=== PATIENT | female | born 1990 | race American Indian/Alaskan Native ===

== ENCOUNTER 2017-11-20 18:40 | Emergency (ER) | payer SELFPAY ==
[2017-11-20 18:49] VITALS: BP 121/59
[2017-11-20 19:19] LABS: Bilirubin,Urine NEG (Negative); Blood,Urine LG (Negative); Color,Urine Straw (Yellow); Mucus,Urine FEW /HPF; Protein,Urine <15 mg/dL mg/dL (Negative); Urobilinogen,Urine < 2.0 mg/dL (<2.0)
[2017-11-20 19:24] LABS: HCG Qualitative,Urine Negative (Negative)
--- NOTE | 2017-11-20 19:44 | Emergency Department Report ---
Vomiting/Diarrhea - HPI Chief Complaint: Abdominal Pain Stated Complaint: RIGHT LOWER ABD PAIN Time Seen by Provider: 11/20/17 19:33 Duration: 2 months Severity: mild Nausea/Vomiting Severity: None Diarrhea Severity: None Pain Location: RLQ Pain Severity: Mild Symptoms: Yes Able to Tolerate Fluids, No Watery Diarrhea, No Bloody diarrhea, No Fever, No Recent Unusual Foods, No Recent Untreated Water, No Recent use of Antibiotics, No Family w/ Similar Symptoms, No Contacts w/ Similar Symptoms, No Rash, No Hematuria, No Recent URI Symptoms Other History: This is a 27-year-old -[place] female presents with right lower quadrant pain for 2 months. Patient reports pain is dull and intermittent. Pain is sharp at times and lasts for up to 5 minutes. Reports feeling like something is moving inside of her stomach on the right side. She has not tried taking anything this time. She is concerned it is something in serious and wanted to have follow-up prior to traveling out of the country. Pain currently has resolved. She had one episode of diarrhea yesterday morning. She did not notice blood or staining of bowel. Denies nausea or vomiting, fever, burning sensation, and diarrhea. ED Review of Systems ROS: Stated complaint: RIGHT LOWER ABD PAIN Other details as noted in HPI Constitutional: denies: chills, fever Respiratory: denies: cough, shortness of breath, wheezing Cardiovascular: denies: chest pain, palpitations Gastrointestinal: abdominal pain (right lower quadrant pain), diarrhea (1 episode yesterday). denies: nausea, vomiting, constipation Skin: denies: rash, lesions Neurological: denies: headache, weakness, paresthesias Psychiatric: denies: anxiety, depression ED Past Medical Hx - Past Medical History Previous Medical History?: No - Surgical History Past Surgical History?: No - Social History Smoking Status: Never Smoker Substance Use Type: None Vomiting Diarrhea Exam - Exam General: Vital signs noted. No distress. Alert and acting appropriately. HEENT: Yes Moist Mucous Membranes, No Pharyngeal Erythema, No Pharyngeal Exudates, No Rhinorrhea, No Conjuctival Injection, No Frontal Tenderness, No Maxillary Tenderness Neck: No Adenopathy, No Rigidity Lungs: Yes Clear Lung Sounds, Yes Good Air Exchange, No Wheezes, No Stridor, No Cough, No Nasal Flaring, No Retractions, No Use of Accessory Muscles Heart exam: Regular: Yes, Murmur: No, Tachycardia: No Abdomen: Tenderness: No, Peritoneal Signs: No, Distention: No, Hyperactive Bowel sounds: No Skin exam: Rash: No, Edema: No, Normal turgor: Yes Neurologic: Alert and oriented, no deficits. Musculoskeletal: Unremarkable. ED Course Vital Signs 11/20/17 18:45 Temperature 99.4 F Pulse Rate 107 H Respiratory 16 Rate Blood Pressure 121/59 O2 Sat by Pulse 100 Oximetry ED Medical Decision Making - Radiology Data Radiology results: report reviewed PROCEDURE: US ABDOMEN COMPLETE TECHNIQUE: Real-time sonography in multiple planes of the abdomen was performed with image documentation. CPT 32668 HISTORY: RLQ tenderness COMPARISON: No prior studies are available for comparison. FINDINGS: Liver: Normal size and echotexture with no evidence of cystic or solid mass lesions. Gallbladder: Fluid filled. No gallstones, wall thickening, pericholecystic fluid, or sonographic Goldstein's sign. Intrahepatic bile ducts: Normal caliber . Extrahepatic bile ducts: Normal caliber measuring 2 millimeters. Pancreas: Visualized pancreatic head and body demonstrates normal echotexture. Aorta: Proximal aorta measures 1.3 centimeters in diameter. Mid and distal aorta is not well visualized due to bowel gas.. IVC: Visualized portions appear normal. RIGHT kidney: Normal echotexture. No focal renal mass, calculus, or hydronephrosis. Length: 10 x 5 x 4cm. LEFT kidney: Normal echotexture. No focal renal mass, calculus, or hydronephrosis . Length: 9 x 4 x 4cm. Spleen: Normal size and echotexture. No focal lesions. Intraperitoneal fluid: None . Other: None . IMPRESSION: Unremarkable study. - Medical Decision Making This is a 27 y.o. -[place] female with right lower quadrant intermittent pain for 2 months. Patient examined by me. No distress noted. Vitals stable. Her pain currently resolved. She is drinking and eating in the ER with out distress. Obtained UA, tests, ultrasound of abdomen. Labs and ultrasound unremarkable. Advised to f/u with PCP if symptoms persist. Instructed to take OTC pepcid or zantac to r/o GERD. No medication started today. Follow-up with primary care provider in 2-3 days. Critical care attestation.: If time is entered above; I have spent that time in minutes in the direct care of this critically ill patient, excluding procedure time. ED Disposition Clinical Impression: Well adult Abdominal pain Qualifiers: Abdominal location: right lower quadrant Qualified Code(s): R10.31 - Right lower quadrant pain Disposition: TO HOME OR SELFCARE Is pt being admited?: No Does the pt Need Aspirin: No Condition: Stable Instructions: Abdominal Pain (ED) Additional Instructions: Increase water intake. Washing frequently. Follow up with Primary Care Provider in 24-72 hours. Referrals: [facility] [Outside] - 3-5 Days [facility] [Outside] - 3-5 Days SCOTT WAITE MD [Staff Physician] - 3-5 Days Time of Disposition: 21:09 Print Language: KYRGYZ
--- NOTE | 2017-11-20 20:50 | Ultrasound Report ---
FINAL REPORT PROCEDURE: US ABDOMEN COMPLETE TECHNIQUE: Real-time sonography in multiple planes of the abdomen was performed with image documentation. CPT 71241 HISTORY: RLQ tenderness COMPARISON: No prior studies are available for comparison. FINDINGS: Liver: Normal size and echotexture with no evidence of cystic or solid mass lesions. Gallbladder: Fluid filled. No gallstones, wall thickening, pericholecystic fluid, or sonographic Goldstein's sign. Intrahepatic bile ducts: Normal caliber . Extrahepatic bile ducts: Normal caliber measuring 2 millimeters. Pancreas: Visualized pancreatic head and body demonstrates normal echotexture. Aorta: Proximal aorta measures 1.3 centimeters in diameter. Mid and distal aorta is not well visualized due to bowel gas.. IVC: Visualized portions appear normal. RIGHT kidney: Normal echotexture. No focal renal mass, calculus, or hydronephrosis. Length: 10 x 5 x 4cm. LEFT kidney: Normal echotexture. No focal renal mass, calculus, or hydronephrosis . Length: 9 x 4 x 4cm. Spleen: Normal size and echotexture. No focal lesions. Intraperitoneal fluid: None . Other: None . IMPRESSION: Unremarkable study.
== END 2017-11-20 21:15 | disposition home or self-care (01) ==
LOC: ED 18:40
DX: R10.31 Right lower quadrant pain (principal); R19.7 Diarrhea, unspecified
CPT/HCPCS: 76700; 81001; 81025

== ENCOUNTER 2017-11-26 19:04 | Emergency (ER) | payer SELFPAY ==
[2017-11-26 19:56] LABS: Basophils % (Auto) 0.8 % (0.0-1.8); Eosinophils # (Auto) 0.1 K/mm3 (0.0-0.4); Eosinophils % (Auto) 1.4 % (0.0-4.3); Hematocrit 31.9 % (30.3-42.9); Hemoglobin 9.8 gm/dl (10.1-14.3); Lymphocytes # (Auto) 2.7 K/mm3 (1.2-5.4); Lymphocytes % (Auto) 45.4 % (13.4-35.0); Mean Corpuscular HGB Conc 31 % (30-34); Monocytes # (Auto) 0.5 K/mm3 (0.0-0.8); Monocytes % (Auto) 8.4 % (0.0-7.3); Platelet Count 387 K/mm3 (140-440); Red Blood Count 4.91 M/mm3 (3.65-5.03); Red Cell Distribution Width 19.1 % (13.2-15.2)
[2017-11-26 19:57] LABS: Bilirubin,Urine NEG (Negative); Blood,Urine NEG (Negative); Color,Urine Straw (Yellow); Protein,Urine <15 mg/dL mg/dL (Negative); RBC,Urine < 1.0 /HPF (0.0-6.0); Urobilinogen,Urine < 2.0 mg/dL (<2.0)
[2017-11-26 20:03] LABS: Mean Corpuscular Hemoglobin 20 pg (28-32); Mean Corpuscular Volume 65 fl (79-97)
[2017-11-26 20:03] LABS: WBC,Urine < 1.0 /HPF (0.0-6.0)
[2017-11-26 20:04] LABS: HCG Qualitative,Urine Negative (Negative)
[2017-11-26 20:33] LABS: Alanine Aminotransferase 8 units/L (7-56); Albumin 4.6 g/dL (3.9-5); BUN/Creatinine Ratio 14; Blood Urea Nitrogen 7 mg/dL (7-17); Calcium 9.7 mg/dL (8.4-10.2); Hemolysis Index 1
--- NOTE | 2017-11-26 23:02 | Emergency Department Report ---
ED Abdominal Pain HPI - General Chief Complaint: Abdominal Pain Stated Complaint: ABD PAIN Time Seen by Provider: 11/26/17 22:49 Source: patient Mode of arrival: Ambulatory Limitations: No Limitations - History of Present Illness Initial Comments: Patient is 27 years old female with no significant past medical history. This is her second visit this week for the same complaint. Patient stated that she' s been having abdominal pain on and off for the last. She described her pain as sharp and sometimes crying lead to continue for 10 seconds and go away. When it hit she stated that her pain is 2 out of 10. She is worried that he might be something serious. Patient had blood work and abdominal ultrasound done last visit which she did not show anything acute. Patient is denying any fever, nausea or vomiting. No diarrhea. No urinary symptoms no vaginal discharge. MD Complaint: abdominal pain -: month(s) Location: diffuse Radiation: none Severity scale (0 -10): 0 Quality: cramping, sharp Consistency: intermittent Associated Symptoms: denies other symptoms. denies: nausea, vomiting, diarrhea , fever, chills, constipation, dysuria, hematemesis, hematochezia, melena, hematuria, anorexia, syncope - Related Data Allergies Allergy/AdvReac Type Severity Reaction Status Date / Time No Known Allergies Allergy Unverified 11/20/17 18:49 ED Review of Systems ROS: Stated complaint: ABD PAIN Other details as noted in HPI Comment: All other systems reviewed and negative Constitutional: denies: chills, fever Respiratory: denies: cough, orthopnea, shortness of breath, SOB with exertion Cardiovascular: denies: chest pain, palpitations, dyspnea on exertion Gastrointestinal: abdominal pain. denies: nausea, vomiting, diarrhea, constipation, hematemesis, melena, hematochezia Genitourinary: denies: urgency, dysuria, frequency, hematuria Musculoskeletal: denies: back pain Neurological: denies: headache, weakness, numbness, paresthesias, confusion ED Past Medical Hx - Past Medical History Previous Medical History?: No - Surgical History Past Surgical History?: No - Social History Smoking Status: Never Smoker Substance Use Type: None ED Physical Exam - General Limitations: No Limitations General appearance: alert, in no apparent distress - Head Head exam: Present: atraumatic, normocephalic, normal inspection - Eye Eye exam: Present: normal appearance - ENT ENT exam: Present: normal exam, normal orophraynx, mucous membranes moist - Neck Neck exam: Present: normal inspection, full ROM. Absent: tenderness, meningismus, lymphadenopathy - Respiratory Respiratory exam: Present: normal lung sounds bilaterally. Absent: respiratory distress, wheezes, rales, rhonchi, stridor, chest wall tenderness, accessory muscle use, decreased breath sounds, prolonged expiratory - Cardiovascular Cardiovascular Exam: Present: regular rate, normal rhythm, normal heart sounds - GI/Abdominal GI/Abdominal exam: Present: soft, normal bowel sounds. Absent: distended, tenderness, guarding, rebound, rigid, diminished bowel sounds, organomegaly, mass, bruit, pulsatile mass, hernia - Extremities Exam Extremities exam: Present: normal inspection, full ROM, normal capillary refill - Back Exam Back exam: Present: normal inspection, full ROM. Absent: tenderness, CVA tenderness (R), CVA tenderness (L), muscle spasm, paraspinal tenderness, vertebral tenderness, rash noted - Neurological Exam Neurological exam: Present: alert, oriented X3, CN II-XII intact, normal gait, reflexes normal - Skin Skin exam: Present: warm, intact, normal color ED Course Vital Signs 11/26/17 11/26/17 11/26/17 19:31 21:18 21:25 Temperature 98.5 F 99.0 F Pulse Rate 96 H 81 74 Respiratory 17 18 16 Rate Blood Pressure 129/72 Blood Pressure 121/87 121/87 [Right] O2 Sat by Pulse 100 100 95 Oximetry ED Medical Decision Making - Lab Data Result diagrams: 11/26/17 19:48 11/26/17 19:48 - Medical Decision Making I reviewed her previous labs and ultrasound which all came back normal. Patient stated that her pain level is 0 now. Patient labs today is negative for acute finding. I advised patient to follow up with her primary care physician for further management. Critical care attestation.: If time is entered above; I have spent that time in minutes in the direct care of this critically ill patient, excluding procedure time. ED Disposition Clinical Impression: Abdominal pain Disposition: DC-01 TO HOME OR SELFCARE Is pt being admited?: No Condition: Stable Instructions: Abdominal Pain (ED) Referrals: PRIMARY CARE, [Primary Care Provider] - 3-5 Days
[2017-11-26 23:19] VITALS: BP 122/77
== END 2017-11-26 23:18 | disposition home or self-care (01) ==
LOC: ED 19:04
DX: R10.84 Generalized abdominal pain (principal)
CPT/HCPCS: 36415; 80053; 81001; 81025; 85025; 99283

== ENCOUNTER 2021-06-01 19:13 | Emergency (ER) | payer SELFPAY ==
[2021-06-01 19:19] VITALS: BP 134/81
== END 2021-06-01 23:06 | disposition left against medical advice (07) ==
LOC: ED 19:13
DX: R42 Dizziness and giddiness (principal); F41.0 Panic disorder [episodic paroxysmal anxiety]; Z53.21 Procedure and treatment not carried out due to patient leaving prior to being seen by health care provider